=== PATIENT | female | born 1935 | race Caucasian/White ===

== ENCOUNTER 2020-10-27 10:22 | Inpatient (IN) ==
[2020-10-27 11:19] LABS: Basophils # 0.1 10*3/uL (0.0-0.2); Basophils % 0.5 % (0.0-0.8); Eosinophils # 0.1 10*3/uL (0.0-0.87); Eosinophils % 0.5 % (0.00-10.9); Hematocrit 38.4 VOL% (35.7-47.0); Hemoglobin 12.5 GM/DL (12.0-16.0); Immature Granulocytes % 0.5 %; Immature Granulocytes Absolute 0.06 #; Lymphocytes # 3.7 10*3/uL (1.4-4.0); Lymphocytes % 28.5 % (21.3-54.2); Mean Corpuscular HGB Conc 32.6 GM/DL (32-36); Mean Corpuscular Volume 94.1 FL (87-102); Mean Platelet Volume 9.3 FL (9.6-12.0); Monocytes % 5.6 % (1.7-12.7); Neutrophils % 64.4 % (38.7-73.9); Platelet Count 551 T/CUMM (130-400); Red Blood Count 4.08 MC/CUMM (3.8-5.5); Red Cell Distribution Width 15.4 % (9.3-17.3)
[2020-10-27] MEDS ORDERED: fentaNYL 100 MCG/2 ML VIAL IV STA (11:24)
[2020-10-27 11:29] LABS: PT Patient Result 10.6 SECS (9.8-11.9)
[2020-10-27] MEDS ORDERED: ONDANSETRON 4 MG/2 ML VIAL IV STA (11:29)
[2020-10-27 11:40] LABS: Alanine Aminotransferase 14 U/L (13-56); Alkaline Phosphatase 77 U/L (45-117); Aspartate Amino Transferase 18 U/L (0-37); Bilirubin,Total < 0.39 MG/DL (0.2-1.0); Blood Urea Nitrogen 17 MG/DL (7-18); Calcium 9.5 MG/DL (8.5-10.1); Carbon Dioxide 25 MMOL/L (21-32); Glucose 153 MG/DL (74-106); Potassium 3.1 MMOL/L (3.5-5.1); Sodium 143 MMOL/L (136-145); Total Protein 7.6 G/DL (6.4-8.3)
[2020-10-27 11:45] LABS: Estimated Glom Filtration Rate 0 ML/MIN
[2020-10-27] MEDS ORDERED: hydrALAZINE 20 MG/1 ML VIAL IV PRN (12:01)
[2020-10-27] MEDS ORDERED: ACETAMINOPHEN 325 MG TABLET PO PRN (12:01)
[2020-10-27] MEDS ORDERED: ONDANSETRON 4 MG/2 ML VIAL IV PRN (12:01)
[2020-10-27] MEDS ORDERED: GLUCAGON 1 MG VIAL IM PRN (12:01)
[2020-10-27] MEDS ORDERED: DEXTROSE 50% 25 GM/50 ML VIAL IV PRN (12:01)
[2020-10-27 12:34] LABS: Thyroid Stimulating Hormone 7.65 uIU/ml (0.358-3.74)
[2020-10-27 14:06] LABS: Free T4 (Free Thyroxine) 1.12 NG/DL (0.76-1.46)
[2020-10-27] MEDS: LACTATED RINGERS 1,000 ML IV SCH (15:49)
[2020-10-27] MEDS: HYDROmorphone 2 MG/1 ML VIAL IV PRN ×2 (15:49→21:11)
[2020-10-27] MEDS: POTASSIUM CHLORIDE RIDER 10 MEQ in PREMIX 1 EACH IV PRN ×2 (15:50→17:39)
[2020-10-27] MEDS: DOCUSATE SODIUM 100 MG CAPSULE PO SCH (22:37)
[2020-10-28] MEDS: HYDROmorphone 2 MG/1 ML VIAL IV PRN ×2 (00:39→03:30)
[2020-10-28] MEDS: MORPHINE 4 MG/1 ML VIAL IV PRN ×4 (04:57→18:26)
[2020-10-28 05:56] LABS: Basophils % 0.2 % (0.0-0.8); Hematocrit 33.9 VOL% (35.7-47.0); Hemoglobin 10.8 GM/DL (12.0-16.0); Immature Granulocytes % 0.4 %; Immature Granulocytes Absolute 0.07 #; Lymphocytes # 2.3 10*3/uL (1.4-4.0); Lymphocytes % 14.5 % (21.3-54.2); Mean Corpuscular HGB Conc 31.9 GM/DL (32-36); Mean Corpuscular Volume 95.8 FL (87-102); Mean Platelet Volume 9.6 FL (9.6-12.0); Monocytes % 10.9 % (1.7-12.7); Platelet Count 451 T/CUMM (130-400); Red Blood Count 3.54 MC/CUMM (3.8-5.5); Red Cell Distribution Width 15.5 % (9.3-17.3); White Blood Count 16.1 T/CUMM (4-12)
[2020-10-28] MEDS ORDERED: DEXMEDETOMIDINE 200 MCG/2 ML VIAL ONE (06:05)
[2020-10-28] MEDS ORDERED: fentaNYL 100 MCG/2 ML VIAL ONE (06:05)
[2020-10-28] MEDS ORDERED: LIDOCAINE 2% 5 ML VIAL ONE (06:06)
[2020-10-28] MEDS ORDERED: ONDANSETRON 4 MG/2 ML VIAL ONE (06:06)
[2020-10-28 06:11] LABS: Calcium 9.4 MG/DL (8.5-10.1); Osmolality,Calculated 290.1 MOS/KG (273-304); Potassium 4.8 MMOL/L (3.5-5.1)
[2020-10-28] MEDS ORDERED: PHENYLEPHRINE DRIP 20 MG/250 ML PREMIX IV ONE (06:17)
[2020-10-28] MEDS ORDERED: BACITRACIN OINT 0.9 GM PACK TOP ONE (06:24)
[2020-10-28] MEDS ORDERED: ceFAZolin 1,000 MG in SYRINGE 1 EACH IV ONE (06:24)
[2020-10-28] MEDS ORDERED: BUPIVACAINE SPINAL 0.75% 2 ML AMP SPINAL ONE (06:32)
[2020-10-28] MEDS ORDERED: ceFAZolin 1,000 MG VIAL ONE (06:46)
[2020-10-28] MEDS ORDERED: EPINEPHrine 1 MG/ML VIAL ONE (07:05)
[2020-10-28] MEDS ORDERED: DEXAMETHASONE 4 MG/1 ML VIAL ONE (07:05)
[2020-10-28] MEDS ORDERED: ROPIVACAINE 0.5% 30 ML VIAL ONE (07:05)
[2020-10-28] MEDS ORDERED: ALBUMIN 5% 12.5 GM/250 ML VIAL IV ONE (07:13)
[2020-10-28] MEDS ORDERED: MAGNESIUM HYDROXIDE SUSP 30 ML UDCUP PO PRN (08:17)
[2020-10-28] MEDS ORDERED: propofoL 200 MG/20 ML VIAL IV ONE (08:25)
[2020-10-28] MEDS ORDERED: ALBUTEROL 2.5 MG/3 ML NEB RESP TX ONE (08:30)
[2020-10-28] MEDS: LACTATED RINGERS 1,000 ML IV SCH ×2 (09:24→22:44)
[2020-10-28] MEDS: PANTOPRAZOLE 40 MG TABLET PO SCH (13:46)
[2020-10-28] MEDS: ceFAZolin 1,000 MG in SYRINGE 1 EACH IV SCH ×2 (13:46→21:45)
[2020-10-28] MEDS: DOCUSATE SODIUM 100 MG CAPSULE PO SCH ×2 (13:46→21:49)
[2020-10-28] MEDS: ZINC OXIDE PASTE 113 GM TUBE TOP SCH ×2 (18:09→21:49)
[2020-10-29] MEDS: MORPHINE 4 MG/1 ML VIAL IV PRN ×4 (02:11→23:56)
[2020-10-29] MEDS ORDERED: FONDAPARINUX 2.5 MG/0.5 ML SYRINGE SUBCUT SCH (05:00)
[2020-10-29 06:36] LABS: Basophils % 0.2 % (0.0-0.8); Hematocrit 28.2 VOL% (35.7-47.0); Immature Granulocytes % 0.4 %; Immature Granulocytes Absolute 0.08 #; Lymphocytes # 1.8 10*3/uL (1.4-4.0); Lymphocytes % 8.8 % (21.3-54.2); Mean Corpuscular HGB Conc 31.9 GM/DL (32-36); Mean Corpuscular Volume 96.9 FL (87-102); Mean Platelet Volume 10.3 FL (9.6-12.0); Monocytes % 5.7 % (1.7-12.7); Neutrophils % 84.9 % (38.7-73.9); Platelet Count 308 T/CUMM (130-400); Red Blood Count 2.91 MC/CUMM (3.8-5.5); Red Cell Distribution Width 15.8 % (9.3-17.3); White Blood Count 19.8 T/CUMM (4-12)
[2020-10-29 07:03] LABS: Band Neutrophils 5 % (0-10); Lymphocytes 15 % (20-55); Platelet Estimate Normal; Segmented Neutrophils 79 % (50-85); Total Cells Counted 100
[2020-10-29 07:03] LABS: Calcium 9.3 MG/DL (8.5-10.1); Osmolality,Calculated 294.7 MOS/KG (273-304); Potassium 4.7 MMOL/L (3.5-5.1)
[2020-10-29] MEDS ORDERED: ACETAMINOPHEN 650 MG SUPP RECTAL PRN (08:48)
[2020-10-29] MEDS: ENOXAPARIN 30 MG/0.3 ML SYRINGE SUBCUT SCH (09:25)
[2020-10-29] MEDS: ZINC OXIDE PASTE 113 GM TUBE TOP SCH ×2 (09:25→20:45)
[2020-10-29] MEDS: LIDOCAINE 5% PATCH TRANSDERM SCH (11:00)
[2020-10-29 13:11] LABS: Amorphous Crystals,Urine Occasional /HPF (Few); Bacteria,Urine Occasional /HPF (Few); Bilirubin,Urine Negative (Negative); Blood, Urine Moderate mg/dL (Negative); Glucose,Urine (UA) Negative (Negative); Hyaline Casts,Urine 21 /LPF (0-3); Ketones,Urine Negative (Negative); Mucus,Urine Few /LPF (Occasional); Nitrite,Urine Negative (Negative); Protein,Urine 30 MG/DL; RBC,Urine 13 /HPF (0-4); Squamous Epithelial Cell,Urine Occasional /HPF (0-10); Urine Appearance CLOUDY (Clear); Urine Color Amber (Yellow); WBC,Urine 80 /HPF (0-6)
[2020-10-29] MEDS: DOCUSATE SODIUM 100 MG CAPSULE PO SCH ×2 (14:08→22:18)
[2020-10-29] MEDS: PANTOPRAZOLE 40 MG TABLET PO SCH (14:09)
[2020-10-29] MEDS: cefTRIAXone 1,000 MG in SYRINGE 1 EACH IV SCH (14:47)
[2020-10-29] MEDS: AZITHROMYCIN INJ 500 MG in SODIUM CHLORIDE 0.9% 250 ML IV SCH (14:57)
[2020-10-30] MEDS: MORPHINE 4 MG/1 ML VIAL IV PRN ×3 (02:24→09:18)
[2020-10-30] MEDS: LACTATED RINGERS 1,000 ML IV SCH ×3 (03:51→21:43)
[2020-10-30 07:52] LABS: Basophils % 0.3 % (0.0-0.8); Eosinophils % 0.1 % (0.00-10.9); Hematocrit 25.2 VOL% (35.7-47.0); Immature Granulocytes % 0.5 %; Immature Granulocytes Absolute 0.08 #; Lymphocytes # 2.1 10*3/uL (1.4-4.0); Lymphocytes % 13.7 % (21.3-54.2); Mean Corpuscular HGB Conc 31.7 GM/DL (32-36); Mean Corpuscular Volume 95.5 FL (87-102); Mean Platelet Volume 10.4 FL (9.6-12.0); Monocytes % 7.9 % (1.7-12.7); Neutrophils % 77.5 % (38.7-73.9); Platelet Count 326 T/CUMM (130-400); Red Blood Count 2.64 MC/CUMM (3.8-5.5); Red Cell Distribution Width 15.9 % (9.3-17.3); White Blood Count 15.6 T/CUMM (4-12)
[2020-10-30 08:07] LABS: Calcium 9.5 MG/DL (8.5-10.1); Osmolality,Calculated 288.1 MOS/KG (273-304)
[2020-10-30 08:27] LABS: Band Neutrophils 1 % (0-10); Lymphocytes 19 % (20-55); Platelet Estimate Adequate; Segmented Neutrophils 75 % (50-85); Total Cells Counted 100
[2020-10-30 08:31] LABS: Hypochromasia 1+; Microcytosis 1+; Ovalocytes Slight
[2020-10-30] MEDS: ENOXAPARIN 30 MG/0.3 ML SYRINGE SUBCUT SCH ×2 (09:18→09:44)
[2020-10-30] MEDS: LIDOCAINE 5% PATCH TRANSDERM SCH ×2 (09:18→09:42)
[2020-10-30 09:53] LABS: % Iron Saturation 5.3 % (18-50); Ferritin 114.2 ng/ml (8-252)
[2020-10-30] MEDS: ZINC OXIDE PASTE 113 GM TUBE TOP SCH ×2 (13:00→21:44)
[2020-10-30] MEDS: DOCUSATE SODIUM 100 MG CAPSULE PO SCH ×2 (13:13→23:06)
[2020-10-30] MEDS: PANTOPRAZOLE 40 MG TABLET PO SCH (13:13)
[2020-10-30] MEDS: cefTRIAXone 1,000 MG in SYRINGE 1 EACH IV SCH (16:29)
[2020-10-30] MEDS: AZITHROMYCIN INJ 500 MG in SODIUM CHLORIDE 0.9% 250 ML IV SCH (16:38)
[2020-10-30] MEDS: FERRIC GLUCONATE COMPLEX 125 MG in SODIUM CHLORIDE 0.9% 100 ML IV SCH (18:03)
[2020-10-30] MEDS: KETOROLAC 15 MG/1 ML VIAL IV PRN (21:43)
[2020-10-31] MEDS: KETOROLAC 15 MG/1 ML VIAL IV PRN ×3 (04:03→21:30)
[2020-10-31] MEDS: PANTOPRAZOLE 40 MG TABLET PO SCH (08:31)
[2020-10-31] MEDS: DOCUSATE SODIUM 100 MG CAPSULE PO SCH (08:31)
[2020-10-31 08:41] LABS: Basophils # 0.1 10*3/uL (0.0-0.2); Basophils % 0.3 % (0.0-0.8); Eosinophils % 0.1 % (0.00-10.9); Hematocrit 23.8 VOL% (35.7-47.0); Hemoglobin 7.5 GM/DL (12.0-16.0); Immature Granulocytes % 1.8 %; Immature Granulocytes Absolute 0.26 #; Lymphocytes % 13.5 % (21.3-54.2); Mean Corpuscular HGB Conc 31.5 GM/DL (32-36); Mean Corpuscular Volume 96.7 FL (87-102); Mean Platelet Volume 10.3 FL (9.6-12.0); NRBC # 0.06 10*3/uL; Neutrophils % 75.3 % (38.7-73.9); Platelet Count 339 T/CUMM (130-400); Red Blood Count 2.46 MC/CUMM (3.8-5.5); Red Cell Distribution Width 15.9 % (9.3-17.3); White Blood Count 14.8 T/CUMM (4-12)
[2020-10-31 09:11] LABS: Calcium 9.3 MG/DL (8.5-10.1); Osmolality,Calculated 305.1 MOS/KG (273-304); Potassium 3.7 MMOL/L (3.5-5.1)
[2020-10-31] MEDS: ENOXAPARIN 30 MG/0.3 ML SYRINGE SUBCUT SCH (09:40)
[2020-10-31] MEDS: LIDOCAINE 5% PATCH TRANSDERM SCH (09:40)
[2020-10-31] MEDS: FERRIC GLUCONATE COMPLEX 125 MG in SODIUM CHLORIDE 0.9% 100 ML IV SCH (09:40)
[2020-10-31] MEDS: ZINC OXIDE PASTE 113 GM TUBE TOP SCH ×2 (09:40→21:32)
[2020-10-31] MEDS ORDERED: ACETAMINOPHEN IV ONE (11:19)
[2020-10-31] MEDS ORDERED: ACETAMINOPHEN 325 MG/10.15 ML UDCUP PO ONE (12:00)
[2020-10-31] MEDS: LACTATED RINGERS 1,000 ML IV SCH (13:37)
[2020-10-31] MEDS: cefTRIAXone 1,000 MG in SYRINGE 1 EACH IV SCH (14:00)
[2020-10-31] MEDS: AZITHROMYCIN INJ 500 MG in SODIUM CHLORIDE 0.9% 250 ML IV SCH (14:04)
[2020-11-01] MEDS: DOCUSATE SODIUM 100 MG CAPSULE PO SCH ×3 (01:42→21:02)
[2020-11-01] MEDS: KETOROLAC 15 MG/1 ML VIAL IV PRN ×2 (03:09→09:46)
[2020-11-01 07:52] LABS: Basophils # 0.1 10*3/uL (0.0-0.2); Basophils % 0.3 % (0.0-0.8); Eosinophils # 0.1 10*3/uL (0.0-0.87); Eosinophils % 0.6 % (0.00-10.9); Hematocrit 22.8 VOL% (35.7-47.0); Hemoglobin 7.4 GM/DL (12.0-16.0); Immature Granulocytes % 4.5 %; Immature Granulocytes Absolute 0.65 #; Lymphocytes # 1.9 10*3/uL (1.4-4.0); Lymphocytes % 13.2 % (21.3-54.2); Mean Corpuscular HGB Conc 32.5 GM/DL (32-36); Mean Corpuscular Volume 93.8 FL (87-102); Mean Platelet Volume 9.9 FL (9.6-12.0); Monocytes % 9.8 % (1.7-12.7); NRBC # 0.16 10*3/uL; Neutrophils % 71.6 % (38.7-73.9); Platelet Count 319 T/CUMM (130-400); Red Blood Count 2.43 MC/CUMM (3.8-5.5); Red Cell Distribution Width 15.6 % (9.3-17.3); White Blood Count 14.4 T/CUMM (4-12)
[2020-11-01] MEDS ORDERED: SODIUM CHLORIDE 0.9% 1,000 ML IV PRN ×2 (08:01→13:01)
[2020-11-01 08:10] LABS: Calcium 9.1 MG/DL (8.5-10.1); Potassium 3.5 MMOL/L (3.5-5.1)
[2020-11-01 08:26] LABS: Hypochromasia 1+; Microcytosis 1+; Target Cells Slight
[2020-11-01 08:27] LABS: Platelet Estimate Normal
[2020-11-01] MEDS: FERRIC GLUCONATE COMPLEX 125 MG in SODIUM CHLORIDE 0.9% 100 ML IV SCH (09:04)
[2020-11-01] MEDS: ZINC OXIDE PASTE 113 GM TUBE TOP SCH ×2 (09:08→21:03)
[2020-11-01] MEDS: LIDOCAINE 5% PATCH TRANSDERM SCH (09:09)
[2020-11-01] MEDS: PANTOPRAZOLE 40 MG TABLET PO SCH (09:11)
[2020-11-01] MEDS: ENOXAPARIN 30 MG/0.3 ML SYRINGE SUBCUT SCH (09:12)
[2020-11-01 10:49] LABS: Atypical Lymphocytes Few; Eosinophils 1 % (0-10); Lymphocytes 10 % (20-55); Myelocytes 1 %; Nucleated Red Blood Cells 1 (0-5); Segmented Neutrophils 82 % (50-85); Total Cells Counted 100
[2020-11-01] MEDS: AZITHROMYCIN INJ 500 MG in SODIUM CHLORIDE 0.9% 250 ML IV SCH (13:17)
[2020-11-01] MEDS: cefTRIAXone 1,000 MG in SYRINGE 1 EACH IV SCH (13:17)
[2020-11-01] MEDS: MORPHINE 4 MG/1 ML VIAL IV PRN (21:33)
[2020-11-02] MEDS: KETOROLAC 15 MG/1 ML VIAL IV PRN ×2 (06:05→20:29)
[2020-11-02 07:39] LABS: Basophils # 0.1 10*3/uL (0.0-0.2); Basophils % 0.6 % (0.0-0.8); Eosinophils # 0.2 10*3/uL (0.0-0.87); Eosinophils % 1.2 % (0.00-10.9); Hematocrit 22.7 VOL% (35.7-47.0); Hemoglobin 7.6 GM/DL (12.0-16.0); Immature Granulocytes % 10.4 %; Immature Granulocytes Absolute 1.58 #; Lymphocytes # 2.2 10*3/uL (1.4-4.0); Lymphocytes % 14.2 % (21.3-54.2); Mean Corpuscular HGB Conc 33.5 GM/DL (32-36); Mean Corpuscular Volume 91.5 FL (87-102); Mean Platelet Volume 9.5 FL (9.6-12.0); NRBC # 0.38 10*3/uL; Neutrophils % 63.6 % (38.7-73.9); Platelet Count 358 T/CUMM (130-400); Red Blood Count 2.48 MC/CUMM (3.8-5.5); Red Cell Distribution Width 15.2 % (9.3-17.3); White Blood Count 15.3 T/CUMM (4-12)
[2020-11-02 07:59] LABS: Eosinophils 3 % (0-10); Lymphocytes 18 % (20-55); Nucleated Red Blood Cells 1 (0-5); Platelet Estimate Adequate; Segmented Neutrophils 71 % (50-85); Total Cells Counted 100
[2020-11-02 08:00] LABS: Hypochromasia 2+; Microcytosis 1+
[2020-11-02 08:14] LABS: Calcium 8.6 MG/DL (8.5-10.1); Potassium 3.7 MMOL/L (3.5-5.1)
[2020-11-02] MEDS: LACTATED RINGERS 1,000 ML IV SCH (08:25)
[2020-11-02] MEDS: DOCUSATE SODIUM 100 MG CAPSULE PO SCH ×2 (08:26→20:29)
[2020-11-02] MEDS: ASCORBIC ACID 500 MG TABLET PO SCH ×2 (10:33→20:29)
[2020-11-02] MEDS: ENOXAPARIN 30 MG/0.3 ML SYRINGE SUBCUT SCH (10:33)
[2020-11-02] MEDS: PANTOPRAZOLE 40 MG TABLET PO SCH (10:33)
[2020-11-02] MEDS: ZINC OXIDE PASTE 113 GM TUBE TOP SCH (10:33)
[2020-11-02] MEDS: FERRIC GLUCONATE COMPLEX 125 MG in SODIUM CHLORIDE 0.9% 100 ML IV SCH (10:34)
[2020-11-02] MEDS: LIDOCAINE 5% PATCH TRANSDERM SCH (10:35)
[2020-11-02] MEDS: cefTRIAXone 1,000 MG in SYRINGE 1 EACH IV SCH (12:47)
[2020-11-02] MEDS: AZITHROMYCIN INJ 500 MG in SODIUM CHLORIDE 0.9% 250 ML IV SCH (12:48)
[2020-11-02] MEDS: MORPHINE 4 MG/1 ML VIAL IV PRN (15:05)
[2020-11-03] MEDS: ZINC OXIDE PASTE 113 GM TUBE TOP SCH ×2 (04:50→09:47)
[2020-11-03 08:33] LABS: Basophils # 0.1 10*3/uL (0.0-0.2); Basophils % 0.5 % (0.0-0.8); Eosinophils # 0.3 10*3/uL (0.0-0.87); Eosinophils % 1.7 % (0.00-10.9); Hematocrit 23.8 VOL% (35.7-47.0); Hemoglobin 7.7 GM/DL (12.0-16.0); Immature Granulocytes % 13.2 %; Immature Granulocytes Absolute 1.99 #; Lymphocytes # 2.6 10*3/uL (1.4-4.0); Mean Corpuscular HGB Conc 32.4 GM/DL (32-36); Mean Corpuscular Volume 94.1 FL (87-102); Mean Platelet Volume 9.8 FL (9.6-12.0); Monocytes % 10.4 % (1.7-12.7); NRBC # 0.36 10*3/uL; Neutrophils % 57.2 % (38.7-73.9); Platelet Count 417 T/CUMM (130-400); Red Blood Count 2.53 MC/CUMM (3.8-5.5); Red Cell Distribution Width 15.4 % (9.3-17.3); White Blood Count 15.1 T/CUMM (4-12)
[2020-11-03 08:49] LABS: Calcium 8.8 MG/DL (8.5-10.1); Osmolality,Calculated 282.4 MOS/KG (273-304); Potassium 3.3 MMOL/L (3.5-5.1)
[2020-11-03 08:57] LABS: Eosinophils 1 % (0-10); Hypochromasia 2+; Lymphocytes 20 % (20-55); Microcytosis 1+; Nucleated Red Blood Cells 1 (0-5); Platelet Estimate Adequate; Segmented Neutrophils 69 % (50-85); Total Cells Counted 100
[2020-11-03] MEDS ORDERED: ASPIRIN EC 81 MG TABLET PO SCH (09:00)
[2020-11-03] MEDS: PANTOPRAZOLE 40 MG TABLET PO SCH (09:46)
[2020-11-03] MEDS: ENOXAPARIN 30 MG/0.3 ML SYRINGE SUBCUT SCH (09:46)
[2020-11-03] MEDS: LIDOCAINE 5% PATCH TRANSDERM SCH (09:46)
[2020-11-03] MEDS: FERRIC GLUCONATE COMPLEX 125 MG in SODIUM CHLORIDE 0.9% 100 ML IV SCH (09:47)
[2020-11-03] MEDS: ASCORBIC ACID 500 MG TABLET PO SCH (09:47)
[2020-11-03] MEDS: DOCUSATE SODIUM 100 MG CAPSULE PO SCH (09:48)
[2020-11-03] MEDS: cefTRIAXone 1,000 MG in SYRINGE 1 EACH IV SCH (12:01)
[2020-11-03 12:18] VITALS: BP 114/58
== END 2020-11-03 12:45 | DRG 480 ==
LOC: EDUNIT# → EDBD → N.ED 10:22 → N.EDINP 11:27 → N.3E 14:21
PROVIDERS: ADMIT Internal Medicine; ATTEND Internal Medicine

== ENCOUNTER 2020-11-09 09:55 | Observation (INO) ==
[2020-11-09 11:34] LABS: Basophils # 0.1 10*3/uL (0.0-0.2); Basophils % 0.6 % (0.0-0.8); Eosinophils # 0.2 10*3/uL (0.0-0.87); Eosinophils % 1.5 % (0.00-10.9); Hematocrit 25.1 VOL% (35.7-47.0); Immature Granulocytes % 2.4 %; Lymphocytes % 16.2 % (21.3-54.2); Mean Corpuscular HGB Conc 31.9 GM/DL (32-36); Mean Corpuscular Volume 97.7 FL (87-102); Mean Platelet Volume 8.8 FL (9.6-12.0); Monocytes % 11.4 % (1.7-12.7); Neutrophils % 67.9 % (38.7-73.9); Platelet Count 668 T/CUMM (130-400); Red Blood Count 2.57 MC/CUMM (3.8-5.5); Red Cell Distribution Width 19.4 % (9.3-17.3); White Blood Count 12.4 T/CUMM (4-12)
[2020-11-09 11:54] LABS: Albumin 2.1 G/DL (3.4-5.0); Bilirubin,Total 0.6 MG/DL (0.2-1.0); Calcium 8.9 MG/DL (8.5-10.1); Osmolality,Calculated 276.7 MOS/KG (273-304); Potassium 3.9 MMOL/L (3.5-5.1); Total Protein 6.1 G/DL (6.4-8.3)
[2020-11-09] MEDS ORDERED: DEXTROSE 50% 25 GM/50 ML VIAL IV PRN (14:54)
[2020-11-09] MEDS ORDERED: GLUCAGON 1 MG VIAL IM PRN (14:54)
[2020-11-09] MEDS ORDERED: ONDANSETRON 4 MG/2 ML VIAL IV PRN (14:54)
[2020-11-09] MEDS ORDERED: ACETAMINOPHEN 325 MG TABLET PO PRN ×2 (14:54→15:13)
[2020-11-09] MEDS ORDERED: traMADol 50 MG TABLET PO PRN (15:13)
[2020-11-09] MEDS: SODIUM CHLORIDE 0.9% 1,000 ML IV SCH (17:09)
[2020-11-09] MEDS: CEFEPIME 1,000 MG in SODIUM CHLORIDE 0.9% 100 ML IV SCH ×2 (17:22→21:04)
[2020-11-09] MEDS: ALBUMIN 25% 50 GM in PREMIX 1 EACH IV SCH (18:56)
[2020-11-09] MEDS: ALBUTEROL/IPRATROPIUM 3 ML NEB RESP TX SCH (20:00)
[2020-11-09] MEDS: ASCORBIC ACID 500 MG TABLET PO SCH (21:02)
[2020-11-09] MEDS: MEGESTROL 400 MG/10 ML UDCUP PO SCH (21:02)
[2020-11-09] MEDS: FERROUS SULFATE 325 MG TABLET PO SCH (21:02)
[2020-11-09] MEDS: MENTHOL/ZINC OXIDE OINT 71 GM JAR TOP SCH (21:09)
[2020-11-10] MEDS ORDERED: CLORAZEPATE 3.75 MG TABLET PO ONE (02:38)
[2020-11-10] MEDS: ALBUTEROL/IPRATROPIUM 3 ML NEB RESP TX SCH ×4 (02:40→19:27)
[2020-11-10] MEDS: CEFEPIME 1,000 MG in SODIUM CHLORIDE 0.9% 100 ML IV SCH ×4 (03:08→20:30)
[2020-11-10 07:46] LABS: Basophils # 0.1 10*3/uL (0.0-0.2); Basophils % 0.7 % (0.0-0.8); Eosinophils # 0.3 10*3/uL (0.0-0.87); Eosinophils % 1.7 % (0.00-10.9); Hematocrit 23.6 VOL% (35.7-47.0); Hemoglobin 7.5 GM/DL (12.0-16.0); Immature Granulocytes Absolute 0.29 #; Lymphocytes # 2.5 10*3/uL (1.4-4.0); Lymphocytes % 16.7 % (21.3-54.2); Mean Corpuscular HGB Conc 31.8 GM/DL (32-36); Mean Corpuscular Volume 97.9 FL (87-102); Mean Platelet Volume 9.1 FL (9.6-12.0); Monocytes % 11.6 % (1.7-12.7); Neutrophils % 67.3 % (38.7-73.9); Platelet Count 686 T/CUMM (130-400); Red Blood Count 2.41 MC/CUMM (3.8-5.5); Red Cell Distribution Width 19.2 % (9.3-17.3); White Blood Count 14.6 T/CUMM (4-12)
[2020-11-10 08:03] LABS: Calcium 8.9 MG/DL (8.5-10.1); Osmolality,Calculated 279.4 MOS/KG (273-304); Potassium 3.6 MMOL/L (3.5-5.1)
[2020-11-10] MEDS: DOCUSATE SODIUM 100 MG CAPSULE PO SCH (08:51)
[2020-11-10] MEDS: ASPIRIN EC 81 MG TABLET PO SCH (08:51)
[2020-11-10] MEDS: FAMOTIDINE 20 MG TABLET PO SCH (08:51)
[2020-11-10] MEDS: ASCORBIC ACID 500 MG TABLET PO SCH ×2 (08:51→20:30)
[2020-11-10] MEDS: FERROUS SULFATE 325 MG TABLET PO SCH ×2 (08:51→20:30)
[2020-11-10] MEDS: CHOLECALCIFEROL 1,000 UNIT TABLET PO SCH (08:51)
[2020-11-10] MEDS: MENTHOL/ZINC OXIDE OINT 71 GM JAR TOP SCH ×2 (08:52→20:29)
[2020-11-10] MEDS: LIDOCAINE 5% PATCH TRANSDERM SCH (08:53)
[2020-11-10] MEDS: MEGESTROL 400 MG/10 ML UDCUP PO SCH ×2 (08:53→20:30)
[2020-11-10] MEDS: ALBUMIN 25% 50 GM in PREMIX 1 EACH IV SCH (09:21)
[2020-11-10] MEDS: MUPIROCIN 2% OINT 22 GM TUBE TOP SCH ×2 (09:26→20:29)
[2020-11-10] MEDS: SODIUM CHLORIDE 0.9% 1,000 ML IV SCH (10:48)
[2020-11-10] MEDS ORDERED: ZIPRASIDONE 20 MG/1 ML VIAL IM ONE (19:45)
[2020-11-10] MEDS: KETOROLAC 15 MG/1 ML VIAL IV PRN (20:27)
[2020-11-11] MEDS: ALBUTEROL/IPRATROPIUM 3 ML NEB RESP TX SCH ×3 (00:39→12:56)
[2020-11-11] MEDS: CEFEPIME 1,000 MG in SODIUM CHLORIDE 0.9% 100 ML IV SCH ×3 (02:05→14:12)
[2020-11-11] MEDS: KETOROLAC 15 MG/1 ML VIAL IV PRN (02:05)
[2020-11-11 05:29] LABS: Basophils # 0.1 10*3/uL (0.0-0.2); Basophils % 0.8 % (0.0-0.8); Eosinophils # 0.2 10*3/uL (0.0-0.87); Eosinophils % 1.6 % (0.00-10.9); Hematocrit 24.5 VOL% (35.7-47.0); Hemoglobin 7.9 GM/DL (12.0-16.0); Immature Granulocytes % 1.5 %; Immature Granulocytes Absolute 0.22 #; Lymphocytes # 1.7 10*3/uL (1.4-4.0); Lymphocytes % 11.6 % (21.3-54.2); Mean Corpuscular HGB Conc 32.2 GM/DL (32-36); Mean Corpuscular Volume 97.2 FL (87-102); Mean Platelet Volume 9.2 FL (9.6-12.0); Monocytes % 13.8 % (1.7-12.7); Neutrophils % 70.7 % (38.7-73.9); Platelet Count 715 T/CUMM (130-400); Red Blood Count 2.52 MC/CUMM (3.8-5.5); Red Cell Distribution Width 19.9 % (9.3-17.3); White Blood Count 14.6 T/CUMM (4-12)
[2020-11-11 05:46] LABS: Calcium 9.5 MG/DL (8.5-10.1); Potassium 3.1 MMOL/L (3.5-5.1)
[2020-11-11] MEDS ORDERED: POTASSIUM CHLORIDE 20 MEQ TABLET PO ONE (07:59)
[2020-11-11] MEDS: SODIUM CHLORIDE 0.9% 1,000 ML IV SCH (08:39)
[2020-11-11] MEDS: FERROUS SULFATE 325 MG TABLET PO SCH (09:04)
[2020-11-11] MEDS: ASPIRIN EC 81 MG TABLET PO SCH (09:04)
[2020-11-11] MEDS: CHOLECALCIFEROL 1,000 UNIT TABLET PO SCH (09:04)
[2020-11-11] MEDS: DOCUSATE SODIUM 100 MG CAPSULE PO SCH (09:05)
[2020-11-11] MEDS: MENTHOL/ZINC OXIDE OINT 71 GM JAR TOP SCH (09:05)
[2020-11-11] MEDS: ASCORBIC ACID 500 MG TABLET PO SCH (09:05)
[2020-11-11] MEDS: MEGESTROL 400 MG/10 ML UDCUP PO SCH (09:05)
[2020-11-11] MEDS: FAMOTIDINE 20 MG TABLET PO SCH (09:05)
[2020-11-11] MEDS: MUPIROCIN 2% OINT 22 GM TUBE TOP SCH (09:06)
[2020-11-11] MEDS: LIDOCAINE 5% PATCH TRANSDERM SCH (09:06)
[2020-11-11] MEDS: ALBUMIN 25% 50 GM in PREMIX 1 EACH IV SCH (09:56)
[2020-11-11] MEDS ORDERED: MAGNESIUM HYDROXIDE SUSP 30 ML UDCUP PO ONE (11:00)
[2020-11-11 12:27] VITALS: BP 92/57
== END 2020-11-11 15:28 | disposition home health service (06) ==
LOC: EDUNIT# → EDBD → N.ED 09:55 → N.5E 09:55 → SUATTDRO 14:54 → N.5E 16:55
PROVIDERS: ADMIT Emergency Medicine; ATTEND Internal Medicine